=== PATIENT | female | born 1975 ===

== ENCOUNTER → 2016-10-21 | Outpatient (CLI) | payer OTHER ==
[2016-10-21 18:05] LABS: CHLORIDE 109 mmol/L (98-107); POTASSIUM 4.4 mmol/L (3.5-5.1); SODIUM 144 mmol/L (136-145)
[2016-10-21 18:08] LABS: HEMATOCRIT 42.3 % (37-47); MEAN CELL VOLUME 91.6 fL (80-100); MEAN CORPUSCULAR HEMOGLOBIN 31.2 pg (25-34); PLATELET COUNT 240 K/uL (130-400); RED BLOOD COUNT 4.62 M/uL (4.2-5.4); WHITE BLOOD COUNT 6.19 K/uL (4.8-10.8)
[2016-10-21 19:29] LABS: CALCIUM 9.4 mg/dl (8.5-10.1); GLUCOSE 89 mg/dl (70-99)
[2016-10-21 20:52] LABS: BLOOD UREA NITROGEN 18 mg/dl (7-18); BUN/CREATININE RATIO 16.7 (10-20); CARBON DIOXIDE 25 mmol/L (21-32)
== END ==
LOC: C.LABMFLN 10:49
PROVIDERS: ATTEND Family Medicine
DX: F31.9 Bipolar disorder, unspecified (principal); R63.5 Abnormal weight gain

== ENCOUNTER → 2017-01-11 | Outpatient (CLI) | payer OTHER ==
[2017-01-11 13:16] LABS: HEMATOCRIT 43.6 % (37-47); MEAN CELL VOLUME 90.8 fL (80-100); MEAN CORPUSCULAR HEMOGLOBIN 30.8 pg (25-34); MEAN CORPUSCULAR HGB CONC 33.9 g/dl (32-36); MEAN PLATELET VOLUME 9.2 fL (7.4-10.4); PLATELET COUNT 202 K/uL (130-400); WHITE BLOOD COUNT 5.03 K/uL (4.8-10.8)
== END | disposition home or self-care (01) ==
LOC: C.LABMFLN 09:27
PROVIDERS: ATTEND Family Medicine
DX: F31.9 Bipolar disorder, unspecified (principal); R53.83 Other fatigue